=== PATIENT | female | born 2005 | race Caucasian/White ===

== ENCOUNTER 2025-02-23 13:42 | Observation (INO) | payer MEDICAID ==
[2025-02-23] MEDS: Lactated Ringers 1,000 ML IV SCH (14:40)
[2025-02-23] MEDS: Magnesium Sulfate 40 Gm/1000 Ml H2O Premix*** 1,000 ML IV SCH (14:41)
[2025-02-23 14:49] LABS: Hematocrit 38.5 % (34.1-44.9); Hemoglobin 12.5 g/dL (11.2-15.7); Mean Corpuscular Hemoglobin 27.4 pg (25.6-32.2); Mean Corpuscular Hgb Concent. 32.5 g/dL (32.2-35.5); Platelet Count 329 x10^3/uL (182-369); Red Blood Count 4.56 x10^6/uL (3.93-5.22); White Blood Count 13.3 x10^3/uL (3.98-10.04)
[2025-02-23 14:54] LABS: Glucose, Urine Negative (Negative); Protein,Urine Dip Trace (Negative); RBC 0-2 /HPF (0-5)
[2025-02-23 15:02] LABS: Calcium 9.2 mg/dL (8.4-10.2); Carbon Dioxide 22.0 mmol/L (22-30); Creatinine 1 0.5 mg/dL (0.52-1.04); EST GLOMERULAR FILTRATION RATE 138.5 ML/MIN; Glucose 73.0 mg/dL (74-106); Potassium 3.7 mmol/L (3.5-5.1); SGOT/AST 30.0 U/L (14-36); SGPT/ALT 12.0 U/L (0-35); Total Protein 8.2 g/dL (6.3-8.2)
[2025-02-23 15:04] LABS: INR 0.88 (0.8-3.0); PROTIME 9.9 SECONDS (9.4-12.5); PTT 28.4 SECONDS (25.1-36.5)
[2025-02-23 15:13] LABS: Amphetamine,Urine NEGATIVE (NEGATIVE); Barbiturate,Urine NEGATIVE (NEGATIVE); Benzodiazepine,Urine NEGATIVE (NEGATIVE); Cocaine,Urine NEGATIVE (NEGATIVE); Methadone,Urine NEGATIVE (NEGATIVE); Opiate,Urine NEGATIVE (NEGATIVE); PCP,Urine NEGATIVE (NEGATIVE); THC,Urine POSITIVE (NEGATIVE)
[2025-02-23] MEDS: Zofran 4 MG/2 ML VIAL IV STA (15:32)
[2025-02-23 15:41] LABS: ABO TYPING A
[2025-02-23 15:41] LABS: AMNISURE TEST RESULTS POSITIVE (NEGATIVE)
[2025-02-23 15:42] LABS: RH TYPING NEGATIVE
[2025-02-23 17:03] VITALS: RESP 16
[2025-02-23 17:04] VITALS: O2SAT 100
[2025-02-23 17:06] VITALS: PULSE 83; TEMP 97.5
[2025-02-23 17:17] VITALS: BP 129/81
== END 2025-02-23 16:50 ==
LOC: OB 13:45
PROVIDERS: ADMIT Family Medicine; ATTEND Family Medicine
DX: Z34.03 Encounter for supervision of normal first pregnancy, third trimester (principal); Z3A.31 31 weeks gestation of pregnancy
CPT/HCPCS: 36415; 80053; 80307; 81001; 83735; 84112; 85027; 85610; 85730; 86850; 86900; 86901; 87077; 87086; 87186; G0378; G0379